=== PATIENT | male | born 1960 | race Caucasian/White ===

== ENCOUNTER 2017-11-30 08:42 | Emergency (ER) | payer OTHER, MEDICAID, SELFPAY ==
[2017-11-30 09:09] VITALS: BP 127/76; PULSE 64; RESP 16; TEMP 36.8; O2SAT 99; BMI 28.2
--- NOTE | 2017-11-30 09:31 | ED_ITS ---
HPI - Abdominal Pain General Chief Complaint: Abdominal Pain Stated Complaint: stomach pain/diarrhea Time Seen by Provider: 11/30/17 09:20 Source: patient Mode of arrival: ambulatory Limitations: no limitations History of Present Illness HPI narrative: Patient is a 57-year-old male who presents with abdominal pain and diarrhea. He said that he has had multiple liquid watery episodes of diarrhea daily for the last 1 week. He has been having mid abdominal pain as well. He threw up once about 5 days ago but not since then. He denies any nausea does not think that he had a fever. MD complaint: abdominal pain Onset (ago): week(s) (1) Pain Consistency: constant Location: diffuse Severity: moderate Quality: cramping Radiation: none Related Data Home Medications Medication Instructions Recorded Confirmed bismuth subsalicylate [Bismuth] 3 tab PO TID #0 07/11/17 11/30/17 loperamide 2 mg PO 3-4XD PRN 11/30/17 11/30/17 Previous Rx's Medication Instructions Recorded simvastatin 20 mg PO HS #90 tab 08/21/17 Allergies Allergy/AdvReac Type Severity Reaction Status Date / Time No Known Drug Allergies Allergy Verified 11/30/17 08:20 Review of Systems Review of Systems All systems reviewed & are unremarkable except as noted in HPI and below Constitutional Denies chills, Denies fever(s), Denies lethargy and Denies weakness Cardiovascular Denies chest pain, Denies irregular heart rhythm, Denies lightheadedness, Denies palpitations, Denies dyspnea, Denies dyspnea on exertion and Denies orthopnea Respiratory Denies cough, Denies dyspnea, Denies dyspnea on exertion and Denies wheezing Gastrointestinal Gastrointestinal: Reports as per HPI and Reports system reviewed and no additional complaints, except as docu Genitourinary Denies hematuria, Denies flank pain, Denies urinary incontinence and Denies urinary urgency Musculoskeletal Denies back pain, Denies muscle weakness, Denies numbness and Denies tingling Integumentary/Breasts Denies pruritus, Denies erythema, Denies rash and Denies wounds Neurologic Denies numbness, Denies tingling and Denies weakness Endocrine Denies palpitations Allergic/Immunologic Denies wheezing PFSH Medical History Colitis (Acute) History of eustachian tube dysfunction (Acute) Hyperlipidemia (Acute) Surgical History History of tonsillectomy and adenoidectomy (Acute) Family History Father History of prostate cancer, Onset Age: 58 Grandfather History of prostate cancer Social History Smoking Status: Never smoker Exam Initial Vital Signs Initial Vital Signs: Vital Signs Temperature 98.3 F 11/30/17 09:09 Pulse Rate 64 11/30/17 09:09 Respiratory Rate 16 11/30/17 09:09 Blood Pressure 127/76 H 11/30/17 09:09 Pulse Oximetry 99 11/30/17 09:09 Const General: cooperative and well developed Nutritional Appearance: well nourished Orientation: alert, awake, oriented x3 and not confused Chest Chest: normal inspection of the chest Resp Effort & Inspection: normal respiratory effort, able to speak in complete sentences, no respiratory distress and no use of accessory muscles Auscultation: clear to auscultation bilaterally, no rales, no rhonchi and no wheezes Cardio Rate: regular rate Rhythm: regular rhythm Heart Sounds: no click, no gallops, no murmurs and no rubs Pulses: normal peripheral pulses GI Palpation: soft, No guarding and tender (Tender all across all lower to mid abdomen no guarding no rebound no localization) Skin General: no rashes or lesions noted, No jaundice and No petechiae Neuro General: alert, oriented x3, gait normal and no focal motor deficits Speech: speech normal Course Orders Ordered: ED Orders 11/30/17 10:32 CT abdomen pelvis w con Stat Discontinued Medications Sodium Chloride (Normal Saline 0.9%) 1,000 mls @ 1,000 mls/hr IV CONT ZEUS Last Admin: 11/30/17 10:16 Dose: 1,000 mls/hr Ketorolac Tromethamine (Toradol) 30 mg IV NOW ONE Stop: 11/30/17 09:26 Last Admin: 11/30/17 10:16 Dose: 30 mg Vital Signs - 8 hr 11/30/17 11:14 11/30/17 12:28 Pulse Rate 70 71 Respiratory Rate 14 18 Blood Pressure 115/79 Blood Pressure [Left Arm] 122/73 H Pulse Oximetry 97 100 MDM - Abdominal Pain Lab Data Result diagrams: 11/30/17 09:50 11/30/17 09:50 Lab Results 11/30/17 11/30/17 Range/Units 09:50 09:50 WBC 6.9 (4.5-11.0) X10^3/uL RBC 4.62 (4.5-5.9) X10^6/uL Hgb 14.9 (13.5-17.5) g/dL Hct 41.9 (41-53) % MCV 90.7 (80-100) fL MCH 32.2 (26-34) PG MCHC 35.5 (30-36) % RDW 13.1 (11.6-14.8) % Plt Count 280 (150-400) X10^3/uL Neut % (Auto) 61.5 (50-75) % Lymph % (Auto) 29.7 (25-40) % [place] % (Auto) 6.6 (3-14) % Eos % (Auto) 1.3 L (2-4) % Baso % (Auto) 0.9 (0-2) % Neut # (Auto) 4300 (4742-3411) /uL Sodium 139 (137-145) mmol/L Potassium 4.0 (3.4-5.1) mmol/L Chloride 103 (98-107) mmol/L Carbon Dioxide 25 (22-32) mmol/L BUN 15 (9-20) mg/dL Creatinine 0.80 (0.66-1.25) mg/dL Estimated GFR > 60.0 (>60) mL/min BUN/Creatinine Ratio 18.8 (6-22) Glucose 99 (70-100) mg/dL Calcium 8.9 (8.4-10.2) mg/dL Total Bilirubin 0.8 (0.2-1.3) mg/dL AST 20 (17-59) IU/L ALT 34 (21-72) IU/L Alkaline Phosphatase 72 (38-126) U/L Total Protein 7.2 (6.3-8.2) g/dL Albumin 4.2 (3.5-5.0) g/dL Globulin 3.0 (1.7-4.1) g/dL Albumin/Globulin Ratio 1.4 (1.0-2.8) Lipase 63 (23-300) U/L Imaging Data CT scan - abdomen: Radiologist's impression: PROCEDURE: CT ABDOMEN PELVIS W CON INDICATIONS: mid ab pain for 1 week with diarrhea hx of colitis TECHNIQUE: After the administration of oral and intravenous contrast, 5 mm thick sections acquired from the diaphragms to the symphysis. 5 mm thick coronal and sagittal reformats were performed. For radiation dose reduction, the following was used: automated exposure control, adjustment of mA and/or kV according to patient size. COMPARISON: [facility], [place], ABDOMEN COMPLETE, 11/10/2015, 9:25. FINDINGS: Image quality: Diagnostic. ABDOMEN: Lung bases: Lung bases are clear. There is a minimal scar versus atelectasis within the right middle lobe and lingula are noted. Heart size is normal. Solid organs: Liver is normal in size and enhancement. Gallbladder is not enlarged or inflamed. Biliary system is non-dilated. Pancreas enhances normally. Spleen is normal in size and enhancement. No adrenal nodules. Kidneys are normal in size and enhancement, without hydronephrosis. There is a 2.2 cm exophytic hypodense lesion involving the posterior aspect of the mid left kidney, which measures approximately 25 Hounsfield units, most likely representing a cyst. Peritoneum and bowel: Mild prominence of the wall of the distal esophagus is present. No significant hiatal hernia is evident. The stomach and duodenum are unremarkable. The small bowel loops are nondilated. There are areas of mild bowel wall thickening involving the small bowel loops within the right lincoln-abdomen. The appendix is well-visualized and normal. Moderate residual stool is identified within the colon. Distal colonic diverticulosis is present. No convincing evidence of diverticulitis is evident. There is no free fluid, loculated fluid collection or free air. There is a small fat containing periumbilical hernia. Nodes and vessels: No retroperitoneal or mesenteric adenopathy. Aorta and inferior vena cava are normal in caliber. There is aortic and iliac artery atherosclerosis. Bones: No acute fractures or suspicious osseous lesions are evident involving the osseous structures of the abdomen. Age-appropriate degenerative changes of the lower lumbar spine are appreciated. PELVIS: Genitourinary: Bladder wall thickness is normal. The prostate is not enlarged. Miscellaneous: No inguinal hernias or adenopathy. Bones: No suspicious bony lesions. No acute pelvic fractures are evident. There are at least mild degenerative changes present involving the hips and sacroiliac joints. IMPRESSION: 1. Nonspecific areas of small bowel wall thickening within the right abdomen is suspicious for enteritis. 2. Colonic diverticulosis without convincing findings of acute diverticulitis. No bowel obstruction. 3. Probable mild to moderate constipation. 4. Mild prominence of the distal esophageal wall may be related to esophagitis. 5. Small periumbilical fat containing hernia. Dictated by: Jerry Salmon M.D. on 11/30/2017 at 9:59 MDM Narrative Medical decision making narrative: The patient is tolerating oral fluids. Electrolytes and labs are fairly unremarkable. A CT does reveal that he has got enteritis. He has got known chronic ongoing colitis. No sign of diverticulitis. He has been in the ED for multiple hours without any episodes of diarrhea. Recommended outpatient stool study if indicated. He has not had any antibiotics or travel history or other risk factors for C diff or infectious diarrhea. I discussed all findings with the patient and spouse, Education has been performed regarding treatment plan, diagnosis, warning signs and symptoms and all concerns have been addressed. Verbally agree with and understood all of the above. Discharge Plan Departure Patient Disposition: Home, Self-Care Clinical Impression: Colitis Discharge Date/Time: 11/30/17 12:28 Interventions: ED Discharge Assessment Last Done: 11/30/17 12:28 Instructions: DI for Colitis Activity Restrictions/Additional Instructions: *You have been diagnosed with colitis, diarrhea *What to do: May require stool sample with her primary care provider, at this time electrolytes in CT are reassuring -recommend continuing to drink Gatorade regular like substance *Continue to take medications as directed *Follow up with your primary care provider in 2-3 days *Return to ER if you should have inability to tolerate all oral fluids called increasing paid or any new, worsening or concerning symptoms Prescriptions: No Action bismuth subsalicylate [Bismuth] 262 MG tablet,chewable 3 tab PO TID Qty: 0 RF: 0 simvastatin 20 MG tablet 20 mg PO HS Qty: 90 RF: 3 loperamide bottle 2 mg PO 3-4XD PRN (Reason: Diarrhea) RF: 0 Referrals: Shannan Bustamante PA-C [Primary Care Provider] -
[2017-11-30 10:04] LABS: Add Manual Diff / Slide Review NO; Basophils Percent Auto 0.9 % (0-2); Eosinophils Percent Auto 1.3 % (2-4); Hematocrit 41.9 % (41-53); Hemoglobin 14.9 g/dL (13.5-17.5); Lymphocytes Percent Auto 29.7 % (25-40); Mean Corpuscular HGB Conc 35.5 % (30-36); Mean Corpuscular Hemoglobin 32.2 PG (26-34); Mean Corpuscular Volume 90.7 fL (80-100); Monocytes Percent Auto 6.6 % (3-14); Neutrophils Absolute Auto 4300 /uL (3000-5900); Neutrophils Percent Auto 61.5 % (50-75); Platelet Count 280 X10^3/uL (150-400); Red Blood Cell Count 4.62 X10^6/uL (4.5-5.9); Red Cell Distribution Width 13.1 % (11.6-14.8); White Blood Cell Count 6.9 X10^3/uL (4.5-11.0)
[2017-11-30 10:15] VITALS: BP 127/86; PULSE 64; RESP 13; O2SAT 97
[2017-11-30] MEDS: KETOROLAC 60 MG/2 ML VIAL 30 MG IV (10:16)
[2017-11-30] MEDS: SODIUM CHLORIDE 0.9% 1,000 ML 1000 ML IV (10:16)
[2017-11-30 10:20] LABS: Alanine Aminotransferase 34 IU/L (21-72); Albumin 4.2 g/dL (3.5-5.0); Albumin Globulin Ratio 1.4 (1.0-2.8); Alkaline Phosphatase 72 U/L (38-126); Aspartate Aminotransferase 20 IU/L (17-59); BUN Creatinine Ratio 18.8 (6-22); Bilirubin Total 0.8 mg/dL (0.2-1.3); Blood Urea Nitrogen 15 mg/dL (9-20); Calcium 8.9 mg/dL (8.4-10.2); Carbon Dioxide 25 mmol/L (22-32); Chloride 103 mmol/L (98-107); Estimated Glomerular Filt Rate > 60.0 mL/min (>60); Glucose 99 mg/dL (70-100); HEMOLYSIS < 15 (0-50); Lipase 63 U/L (23-300); Sodium 139 mmol/L (137-145); Total Protein 7.2 g/dL (6.3-8.2)
--- NOTE | 2017-11-30 10:32 | DI.CT.S_ITS ---
PROCEDURE: CT ABDOMEN PELVIS W CON INDICATIONS: mid ab pain for 1 week with diarrhea hx of colitis TECHNIQUE: After the administration of oral and intravenous contrast, 5 mm thick sections acquired from the diaphragms to the symphysis. 5 mm thick coronal and sagittal reformats were performed. For radiation dose reduction, the following was used: automated exposure control, adjustment of mA and/or kV according to patient size. COMPARISON: [facility], , ABDOMEN COMPLETE, 11/10/2015, 9:25. FINDINGS: Image quality: Diagnostic. ABDOMEN: Lung bases: Lung bases are clear. There is a minimal scar versus atelectasis within the right middle lobe and lingula are noted. Heart size is normal. Solid organs: Liver is normal in size and enhancement. Gallbladder is not enlarged or inflamed. Biliary system is non-dilated. Pancreas enhances normally. Spleen is normal in size and enhancement. No adrenal nodules. Kidneys are normal in size and enhancement, without hydronephrosis. There is a 2.2 cm exophytic hypodense lesion involving the posterior aspect of the mid left kidney, which measures approximately 25 Hounsfield units, most likely representing a cyst. Peritoneum and bowel: Mild prominence of the wall of the distal esophagus is present. No significant hiatal hernia is evident. The stomach and duodenum are unremarkable. The small bowel loops are nondilated. There are areas of mild bowel wall thickening involving the small bowel loops within the right lincoln-abdomen. The appendix is well-visualized and normal. Moderate residual stool is identified within the colon. Distal colonic diverticulosis is present. No convincing evidence of diverticulitis is evident. There is no free fluid, loculated fluid collection or free air. There is a small fat containing periumbilical hernia. Nodes and vessels: No retroperitoneal or mesenteric adenopathy. Aorta and inferior vena cava are normal in caliber. There is aortic and iliac artery atherosclerosis. Bones: No acute fractures or suspicious osseous lesions are evident involving the osseous structures of the abdomen. Age-appropriate degenerative changes of the lower lumbar spine are appreciated. PELVIS: Genitourinary: Bladder wall thickness is normal. The prostate is not enlarged. Miscellaneous: No inguinal hernias or adenopathy. Bones: No suspicious bony lesions. No acute pelvic fractures are evident. There are at least mild degenerative changes present involving the hips and sacroiliac joints. IMPRESSION: 1. Nonspecific areas of small bowel wall thickening within the right abdomen is suspicious for enteritis. 2. Colonic diverticulosis without convincing findings of acute diverticulitis. No bowel obstruction. 3. Probable mild to moderate constipation. 4. Mild prominence of the distal esophageal wall may be related to esophagitis. 5. Small periumbilical fat containing hernia. Dictated by: Jerry Salmon M.D. on 11/30/2017 at 9:59 Approved by: Jerry Salmon M.D. on 11/30/2017 at 10:07
[2017-11-30 11:14] VITALS: BP 122/73; PULSE 70; RESP 14; O2SAT 97
[2017-11-30 12:28] VITALS: BP 115/79; PULSE 71; RESP 18; O2SAT 100
--- NOTE | 2018-01-19 11:29 | PC.NURSE ---
Addendum entered by Keren Ku R.N. 02/02/18 09:39: completed 11/30/17 Original Note: medication of NS 1000ml/hr IV completed by 1200.
== END 2017-11-30 12:28 | disposition home or self-care (01) ==
PROVIDERS: Emergency Provider Emergency Medicine; Family Provider Physician Assistant; PCP Physician Assistant
DX: K52.9 Noninfective gastroenteritis and colitis, unspecified (principal)
CPT/HCPCS: 36591; 74177; 80053; 83690; 85025; 96361; 96374; 99282; 99285; J1885; Q9967

== ENCOUNTER → 2018-10-29 09:39 | Outpatient (CLI) | payer OTHER, MEDICAID, SELFPAY ==
[2018-10-29 11:18] LABS: Alanine Aminotransferase 34 IU/L (21-72); Albumin 4.5 g/dL (3.5-5.0); Albumin Globulin Ratio 1.7 (1.0-2.8); Alkaline Phosphatase 80 U/L (38-126); Aspartate Aminotransferase 27 IU/L (17-59); BUN Creatinine Ratio 18.8 (6-22); Bilirubin Total 0.8 mg/dL (0.2-1.3); Blood Urea Nitrogen 15 mg/dL (9-20); Calcium 9.5 mg/dL (8.4-10.2); Carbon Dioxide 25 mmol/L (22-32); Chloride 105 mmol/L (98-107); Cholesterol 203 mg/dL (140-199); Estimated Glomerular Filt Rate > 60.0 mL/min (>60); Globulin 2.7 g/dL (1.7-4.1); Glucose 92 mg/dL (70-100); HDL Cholesterol 47 mg/dL (40-60); HEMOLYSIS 20 (0-50); Potassium 4.3 mmol/L (3.4-5.1); Sodium 138 mmol/L (137-145); Total Protein 7.2 g/dL (6.3-8.2)
[2018-10-29 11:20] LABS: LDL Cholesterol Calculated 111 mg/dL (<100); Triglycerides 224 mg/dL (35-150)
== END ==
PROVIDERS: Family Provider Physician Assistant; PCP Physician Assistant; Visit Provider Physician Assistant
DX: E78.5 Hyperlipidemia, unspecified (principal); Z51.81 Encounter for therapeutic drug level monitoring; Z80.42 Family history of malignant neoplasm of prostate
CPT/HCPCS: 36415; 80053; 80061

== ENCOUNTER → 2020-01-22 14:08 | Outpatient (CLI) | payer OTHER, MEDICAID, SELFPAY ==
--- NOTE | 2020-01-22 14:09 | DI.RAD.S_ITS ---
PROCEDURE: XR KNEE LT 3V INDICATIONS: left knee pain TECHNIQUE: 3 views of the knee were acquired. COMPARISON: None. FINDINGS: Bones: No fractures or dislocations. No suspicious bony lesions. Soft tissues: No joint effusion. No suspicious soft tissue calcifications. IMPRESSION: Normal for age, source of current left knee pain symptoms is not seen. Dictated by: Gene Perdue M.D. on 01/22/2020 at 14:48 Approved by: Gene Perdue M.D. on 01/22/2020 at 14:48
== END ==
PROVIDERS: Family Provider Physician Assistant; PCP Nurse Practitioner Family; Referring Provider Nurse Practitioner Family; Visit Provider Nurse Practitioner Family
DX: M25.562 Pain in left knee (principal)
CPT/HCPCS: 73562

== ENCOUNTER → 2020-03-13 07:22 | Outpatient (CLI) | payer OTHER, MEDICAID, SELFPAY ==
[2020-03-13 09:07] LABS: Hematocrit 42.3 % (41-53); Hemoglobin 14.5 g/dL (13.5-17.5); Mean Corpuscular HGB Conc 34.2 % (30-36); Mean Corpuscular Hemoglobin 31.7 PG (26-34); Mean Corpuscular Volume 92.6 fL (80-100); Platelet Count 312 X10^3/uL (150-400); Red Blood Cell Count 4.57 X10^6/uL (4.5-5.9); Red Cell Distribution Width 13.1 % (11.6-14.8); White Blood Cell Count 5.8 X10^3/uL (4.5-11.0)
[2020-03-13 09:20] LABS: Alanine Aminotransferase 28 IU/L (<50); Albumin 4.3 g/dL (3.5-5.0); Albumin Globulin Ratio 1.6 (1.0-2.8); Alkaline Phosphatase 88 U/L (38-126); Aspartate Aminotransferase 28 IU/L (17-59); BUN Creatinine Ratio 15.4 (6-22); Bilirubin Total 0.5 mg/dL (0.2-1.3); Blood Urea Nitrogen 14 mg/dL (9-20); Calcium 9.3 mg/dL (8.4-10.2); Carbon Dioxide 30 mmol/L (22-32); Chloride 106 mmol/L (98-107); Cholesterol 186 mg/dL (140-199); Estimated Glomerular Filt Rate > 60.0 mL/min (>60); Globulin 2.7 g/dL (1.7-4.1); Glucose 106 mg/dL (70-100); HDL Cholesterol 46 mg/dL (40-60); HEMOLYSIS < 15 (0-50); LDL Cholesterol Calculated 117 mg/dL (<100); Potassium 4.9 mmol/L (3.4-5.1); Sodium 138 mmol/L (137-145); Triglycerides 116 mg/dL (35-150)
[2020-03-13 09:47] LABS: Prostate Specific Antigen 0.554 ng/mL (0.10-4.00)
== END ==
PROVIDERS: Family Provider Physician Assistant; PCP Nurse Practitioner Family; Referring Provider Nurse Practitioner Family; Visit Provider Nurse Practitioner Family
DX: Z00.00 Encounter for general adult medical examination without abnormal findings (principal); K52.832 Lymphocytic colitis; E78.5 Hyperlipidemia, unspecified; Z80.42 Family history of malignant neoplasm of prostate
CPT/HCPCS: 36415; 80053; 80061; 84153; 85027

== ENCOUNTER → 2021-03-02 09:13 | Outpatient (CLI) | payer OTHER, MEDICAID, SELFPAY ==
[2021-03-02 09:53] LABS: Hematocrit 43.6 % (41-53); Hemoglobin 14.6 g/dL (13.5-17.5); Mean Corpuscular HGB Conc 33.6 % (30-36); Mean Corpuscular Hemoglobin 31.1 PG (26-34); Mean Corpuscular Volume 92.5 fL (80-100); Platelet Count 344 X10^3/uL (150-400); Red Blood Cell Count 4.71 X10^6/uL (4.5-5.9); Red Cell Distribution Width 13.2 % (11.6-14.8); White Blood Cell Count 6.9 X10^3/uL (4.5-11.0)
[2021-03-02 10:24] LABS: Alanine Aminotransferase 33 IU/L (<50); Albumin 4.3 g/dL (3.5-5.0); Albumin Globulin Ratio 1.7 (1.0-2.8); Alkaline Phosphatase 88 U/L (38-126); Aspartate Aminotransferase 29 IU/L (17-59); BUN Creatinine Ratio 17.9 (6-22); Bilirubin Total 0.8 mg/dL (0.2-1.3); Blood Urea Nitrogen 15 mg/dL (9-20); Calcium 9.7 mg/dL (8.4-10.2); Carbon Dioxide 28 mmol/L (22-32); Chloride 103 mmol/L (98-107); Cholesterol 166 mg/dL (140-199); Estimated Glomerular Filt Rate > 60.0 mL/min (>60); Globulin 2.6 g/dL (1.7-4.1); Glucose 107 mg/dL (70-100); HDL Cholesterol 59 mg/dL (40-60); HEMOLYSIS < 15 (0-50); LDL Cholesterol Calculated 82 mg/dL (<100); Potassium 4.5 mmol/L (3.4-5.1); Sodium 140 mmol/L (137-145); Total Protein 6.9 g/dL (6.3-8.2); Triglycerides 126 mg/dL (35-150)
[2021-03-02 10:31] LABS: Hemoglobin A1C% w Est Avg Glu 5.7 % (4.0-6.0)
[2021-03-02 10:49] LABS: Prostate Specific Antigen Scrn 0.531 ng/mL (0.1-4.0)
[2021-03-02 10:51] LABS: TSH w/ Reflex to FT4 2.78 uIU/mL (0.47-4.68)
== END ==
PROVIDERS: Family Provider Physician Assistant; PCP Registered Nurse Diabetes Educator; Referring Provider Registered Nurse Diabetes Educator; Visit Provider Registered Nurse Diabetes Educator
DX: E78.5 Hyperlipidemia, unspecified (principal); R73.01 Impaired fasting glucose; Z80.42 Family history of malignant neoplasm of prostate; Z12.5 Encounter for screening for malignant neoplasm of prostate
CPT/HCPCS: 36415; 80053; 80061; 83036; 84443; 85027; G0103

== ENCOUNTER → 2022-06-03 09:27 | Outpatient (CLI) | payer OTHER, MEDICAID, SELFPAY ==
[2022-06-03 10:28] LABS: Influenza A - CEPHEID Flu A NEGATIVE (NEGATIVE); Influenza B - CEPHEID Flu B NEGATIVE (NEGATIVE); Respiratory Syncytial Virus Negative (Negative)
[2022-06-03 10:29] LABS: COVID-19 CEPHEID 4-PLEX PCR Negative (Negative)
== END ==
PROVIDERS: Family Provider Physician Assistant; PCP Registered Nurse Diabetes Educator; Visit Provider Student in an Organized Health Care Education/Training Program
DX: J06.9 Acute upper respiratory infection, unspecified (principal)
CPT/HCPCS: 0241U

== ENCOUNTER → 2022-09-12 07:02 | Outpatient (CLI) | payer OTHER, MEDICAID, SELFPAY ==
[2022-09-12 08:38] LABS: Hematocrit 42.7 % (41-53); Hemoglobin 14.9 g/dL (13.5-17.5); Mean Corpuscular HGB Conc 34.8 % (30-36); Mean Corpuscular Hemoglobin 32.1 PG (26-34); Mean Corpuscular Volume 92.4 fL (80-100); Platelet Count 329 X10^3/uL (150-400); Red Blood Cell Count 4.62 X10^6/uL (4.5-5.9); Red Cell Distribution Width 13.3 % (11.6-14.8); White Blood Cell Count 6.2 X10^3/uL (4.5-11.0)
[2022-09-12 09:11] LABS: Alanine Aminotransferase 47 IU/L (<50); Albumin 4.3 g/dL (3.5-5.0); Albumin Globulin Ratio 1.3 (1.0-2.8); Alkaline Phosphatase 89 U/L (38-126); Aspartate Aminotransferase 32 IU/L (17-59); Bilirubin Total 0.6 mg/dL (0.2-1.3); Blood Urea Nitrogen 19 mg/dL (9-20); Calcium 8.9 mg/dL (8.4-10.2); Carbon Dioxide 26 mmol/L (22-32); Chloride 103 mmol/L (98-107); Cholesterol 237 mg/dL (140-199); Estimated Glomerular Filt Rate > 60 mL/min (>60); Globulin 3.3 g/dL (1.7-4.1); Glucose 107 mg/dL (80-110); HDL Cholesterol 52 mg/dL (40-60); HEMOLYSIS < 15 (0-50); LDL Cholesterol Calculated 150 mg/dL (<100); Potassium 4.2 mmol/L (3.4-5.1); Sodium 137 mmol/L (137-145); Total Protein 7.6 g/dL (6.3-8.2); Triglycerides 176 mg/dL (35-150)
[2022-09-12 09:39] LABS: Prostate Specific Antigen Scrn 0.681 ng/mL (0.1-4.0)
[2022-09-12 09:43] LABS: TSH w/ Reflex to FT4 2.81 uIU/mL (0.47-4.68)
[2022-09-13 01:08] LABS: x Labcorp Estim. Avg Glu (eAG) 126 mg/dL (.)
== END ==
PROVIDERS: Family Provider Physician Assistant; PCP Registered Nurse Diabetes Educator; Referring Provider Registered Nurse Diabetes Educator; Visit Provider Registered Nurse Diabetes Educator
DX: E78.5 Hyperlipidemia, unspecified (principal); R73.01 Impaired fasting glucose; Z80.42 Family history of malignant neoplasm of prostate; Z13.29 Encounter for screening for other suspected endocrine disorder; Z12.5 Encounter for screening for malignant neoplasm of prostate
CPT/HCPCS: 36415; 80053; 80061; 83036; 84443; 85027; G0103

== ENCOUNTER → 2022-10-04 06:57 | Outpatient (CLI) | payer OTHER, MEDICAID, SELFPAY ==
[2022-10-04 08:38] LABS: Cholesterol 175 mg/dL (140-199); HDL Cholesterol 51 mg/dL (40-60); LDL Cholesterol Calculated 94 mg/dL (<100); Triglycerides 150 mg/dL (35-150)
== END ==
PROVIDERS: Family Provider Physician Assistant; PCP Registered Nurse Diabetes Educator; Referring Provider Registered Nurse Diabetes Educator; Visit Provider Registered Nurse Diabetes Educator
DX: E78.5 Hyperlipidemia, unspecified (principal)
CPT/HCPCS: 36415; 80061

== ENCOUNTER → 2023-01-23 09:14 | Outpatient (CLI) | payer OTHER, MEDICAID, SELFPAY ==
[2023-01-23 14:05] LABS: Creatinine Urine Random 33.2 mg/dL
[2023-01-23 14:15] LABS: Microalbumin Urine Random < 0.6 mg/dL (0-1.6)
== END ==
PROVIDERS: Family Provider Physician Assistant; PCP Registered Nurse Diabetes Educator; Visit Provider Registered Nurse Diabetes Educator
DX: I10 Essential (primary) hypertension (principal)
CPT/HCPCS: 82043; 82570

== ENCOUNTER → 2023-01-23 10:01 | Outpatient (CLI) | payer OTHER, MEDICAID, SELFPAY ==
[2023-01-23 11:47] LABS: BUN Creatinine Ratio 11.4 (6-22); Blood Urea Nitrogen 10 mg/dL (9-20); Calcium 9.3 mg/dL (8.4-10.2); Carbon Dioxide 26 mmol/L (22-32); Chloride 102 mmol/L (98-107); Estimated Glomerular Filt Rate > 60 mL/min (>60); Glucose 96 mg/dL (80-110); HEMOLYSIS < 15 (0-50); Potassium 4.5 mmol/L (3.4-5.1); Sodium 137 mmol/L (137-145)
== END ==
PROVIDERS: Family Provider Physician Assistant; PCP Registered Nurse Diabetes Educator; Referring Provider Registered Nurse Diabetes Educator; Visit Provider Registered Nurse Diabetes Educator
DX: I10 Essential (primary) hypertension (principal)
CPT/HCPCS: 36415; 80048; 82043; 82570

== ENCOUNTER → 2023-09-08 07:00 | Outpatient (CLI) | payer OTHER, MEDICAID, SELFPAY ==
[2023-09-08 08:12] LABS: Hematocrit 43.5 % (41-53); Mean Corpuscular HGB Conc 34.5 % (30-36); Mean Corpuscular Hemoglobin 32.1 PG (26-34); Mean Corpuscular Volume 92.8 fL (80-100); Platelet Count 341 X10^3/uL (150-400); Red Blood Cell Count 4.69 X10^6/uL (4.5-5.9); Red Cell Distribution Width 13.7 % (11.6-14.8)
[2023-09-08 08:31] LABS: Alanine Aminotransferase 53 IU/L (<50); Albumin 4.2 g/dL (3.5-5.0); Albumin Globulin Ratio 1.4 (1.0-2.8); Alkaline Phosphatase 87 U/L (38-126); Aspartate Aminotransferase 32 IU/L (17-59); BUN Creatinine Ratio 12.7 (6-22); Bilirubin Total 0.8 mg/dL (0.2-1.3); Blood Urea Nitrogen 13 mg/dL (9-20); Calcium 9.3 mg/dL (8.4-10.2); Carbon Dioxide 29 mmol/L (22-32); Chloride 105 mmol/L (98-107); Cholesterol 185 mg/dL (140-199); Estimated Glomerular Filt Rate > 60 mL/min (>60); Globulin 2.9 g/dL (1.7-4.1); Glucose 112 mg/dL (80-110); HDL Cholesterol 52 mg/dL (40-60); HEMOLYSIS < 15 (0-50); LDL Cholesterol Calculated 98 mg/dL (<100); Potassium 4.9 mmol/L (3.4-5.1); Sodium 139 mmol/L (137-145); Total Protein 7.1 g/dL (6.3-8.2); Triglycerides 177 mg/dL (35-150)
[2023-09-08 08:59] LABS: Prostate Specific Antigen 0.616 ng/mL (0.10-4.00)
[2023-09-08 09:04] LABS: TSH w/ Reflex to FT4 3.23 uIU/mL (0.47-4.68)
[2023-09-08 10:34] LABS: Hemoglobin A1C% w Est Avg Glu 6.2 % (4.0-6.0)
== END ==
PROVIDERS: Family Provider Physician Assistant; PCP Registered Nurse Diabetes Educator; Referring Provider Registered Nurse Diabetes Educator; Visit Provider Registered Nurse Diabetes Educator
DX: I10 Essential (primary) hypertension (principal); E78.5 Hyperlipidemia, unspecified; R73.01 Impaired fasting glucose; Z80.42 Family history of malignant neoplasm of prostate
CPT/HCPCS: 36415; 80053; 80061; 83036; 84153; 84443; 85027

== ENCOUNTER → 2024-03-15 07:15 | Outpatient (CLI) | payer OTHER, MEDICAID, SELFPAY ==
[2024-03-15 08:18] LABS: Hemoglobin A1C% w Est Avg Glu 6.2 % (4.0-6.0)
[2024-03-15 09:03] LABS: Alanine Aminotransferase 46 IU/L (<50); Albumin 4.5 g/dL (3.5-5.0); Albumin Globulin Ratio 1.7 (1.0-2.8); Alkaline Phosphatase 87 U/L (38-126); Aspartate Aminotransferase 31 IU/L (17-59); BUN Creatinine Ratio 15.3 (6-22); Blood Urea Nitrogen 15 mg/dL (9-20); Calcium 9.5 mg/dL (8.4-10.2); Carbon Dioxide 27 mmol/L (22-32); Chloride 104 mmol/L (98-107); Cholesterol 215 mg/dL (140-199); Estimated Glomerular Filt Rate > 60 mL/min (>60); Globulin 2.6 g/dL (1.7-4.1); Glucose 110 mg/dL (80-110); HDL Cholesterol 47 mg/dL (40-60); HEMOLYSIS < 15 (0-50); LDL Cholesterol Calculated 133 mg/dL (<100); Potassium 4.7 mmol/L (3.4-5.1); Sodium 137 mmol/L (137-145); Total Protein 7.1 g/dL (6.3-8.2); Triglycerides 173 mg/dL (35-150)
== END ==
LOC: LAB 07:16
PROVIDERS: Family Provider Physician Assistant; PCP Registered Nurse Diabetes Educator; Referring Provider Registered Nurse Diabetes Educator; Visit Provider Registered Nurse Diabetes Educator
DX: I10 Essential (primary) hypertension (principal); E78.5 Hyperlipidemia, unspecified; R73.01 Impaired fasting glucose; R74.8 Abnormal levels of other serum enzymes
CPT/HCPCS: 36415; 80053; 80061; 83036

== ENCOUNTER → 2024-06-14 07:32 | Outpatient (CLI) | payer OTHER, SELFPAY ==
[2024-06-14 09:27] LABS: Alanine Aminotransferase 46 IU/L (<50); Albumin 4.7 g/dL (3.5-5.0); Alkaline Phosphatase 83 U/L (38-126); Aspartate Aminotransferase 33 IU/L (17-59); Bilirubin Total 0.5 mg/dL (0.2-1.3); Bilirubin Unconjugated 0.2 mg/dL (0.0-1.1); Cholesterol 154 mg/dL (140-199); Globulin 2.4 g/dL (1.7-4.1); HDL Cholesterol 50 mg/dL (40-60); HEMOLYSIS < 15 (0-50); LDL Cholesterol Calculated 85 mg/dL (<100); Total Protein 7.1 g/dL (6.3-8.2); Triglycerides 96 mg/dL (35-150)
== END ==
PROVIDERS: Family Provider Physician Assistant; PCP Registered Nurse Diabetes Educator; Referring Provider Registered Nurse Diabetes Educator; Visit Provider Registered Nurse Diabetes Educator
DX: E78.5 Hyperlipidemia, unspecified (principal); R74.8 Abnormal levels of other serum enzymes
CPT/HCPCS: 36415; 80061; 80076

== ENCOUNTER → 2024-09-13 06:54 | Outpatient (CLI) | payer OTHER, SELFPAY ==
[2024-09-13 07:42] LABS: Hematocrit 42.5 % (41-53); Hemoglobin 14.8 g/dL (13.5-17.5); Mean Corpuscular HGB Conc 34.8 % (30-36); Mean Corpuscular Hemoglobin 32.3 PG (26-34); Mean Corpuscular Volume 92.8 fL (80-100); Platelet Count 316 X10^3/uL (150-400); Red Blood Cell Count 4.58 X10^6/uL (4.5-5.9); Red Cell Distribution Width 13.5 % (11.6-14.8); White Blood Cell Count 6.7 X10^3/uL (4.5-11.0)
[2024-09-13 08:07] LABS: Alanine Aminotransferase 36 IU/L (<50); Albumin 4.8 g/dL (3.5-5.0); Albumin Globulin Ratio 1.9 (1.0-2.8); Alkaline Phosphatase 62 U/L (38-126); Aspartate Aminotransferase 30 IU/L (17-59); BUN Creatinine Ratio 13.1 (6-22); Bilirubin Total 0.7 mg/dL (0.2-1.3); Blood Urea Nitrogen 14 mg/dL (9-20); Calcium 9.6 mg/dL (8.4-10.2); Carbon Dioxide 29 mmol/L (22-32); Chloride 103 mmol/L (98-107); Cholesterol 182 mg/dL (140-199); Estimated Glomerular Filt Rate > 60 mL/min (>60); Globulin 2.5 g/dL (1.7-4.1); Glucose 119 mg/dL (80-110); HDL Cholesterol 52 mg/dL (40-60); HEMOLYSIS < 15 (0-50); LDL Cholesterol Calculated 88 mg/dL (<100); Potassium 5.2 mmol/L (3.4-5.1); Sodium 139 mmol/L (137-145); Total Protein 7.3 g/dL (6.3-8.2); Triglycerides 208 mg/dL (35-150)
[2024-09-13 08:35] LABS: Prostate Specific Antigen Scrn 0.651 ng/mL (0.1-4.0)
[2024-09-13 08:36] LABS: TSH w/ Reflex to FT4 2.14 uIU/mL (0.47-4.68)
== END ==
PROVIDERS: Family Provider Physician Assistant; PCP Registered Nurse Diabetes Educator; Referring Provider Registered Nurse Diabetes Educator; Visit Provider Registered Nurse Diabetes Educator
DX: I10 Essential (primary) hypertension (principal); E78.5 Hyperlipidemia, unspecified; Z80.42 Family history of malignant neoplasm of prostate; R74.8 Abnormal levels of other serum enzymes; Z12.5 Encounter for screening for malignant neoplasm of prostate
CPT/HCPCS: 36415; 80053; 80061; 83036; 84443; 85027; G0103